=== PATIENT | female | born 2000 | race Caucasian/White ===

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

== ENCOUNTER 2019-03-29 14:50 | Emergency (ER) | payer MEDICAID ==
--- NOTE | 2019-03-29 15:14 | ER Document Report ---
ED Medical Screen (RME) - General Chief Complaint: Urinary Problem Stated Complaint: URINARY ISSUES Time Seen by Provider: 03/29/19 15:10 Mode of Arrival: Ambulatory Information source: Patient Notes: 19-year-old female presents emergency department with left-sided flank pain that started today. Reports she has been treated for UTI due to burning with void in the past 2 weeks with 2 different antibiotics. Reports she took a Z-Wally first it did not help her symptoms. And then she took Cipro. She started taking the Cipro yesterday and does not have any further pain with void but now having flank pain. Denies fever vomiting diarrhea. Has history of endometriosis. I have greeted and performed a rapid initial assessment of this patient. A comprehensive ED assessment and evaluation of the patient, analysis of test results and completion of the medical decision making process will be conducted by additional ED providers. Dictation of this chart was performed using voice recognition software; therefore, there may be some unintended grammatical errors. TRAVEL OUTSIDE OF THE [place] IN LAST 30 DAYS: No - Related Data Allergies/Adverse Reactions: No Known Drug Allergies Allergy (Verified 03/29/19 15:06) Penicillins Allergy (Verified 03/29/19 15:07) throat swelling sulfamethoxazole [From Septra] Allergy (Verified 03/29/19 15:07) throat swelling trimethoprim [From Septra] Allergy (Verified 03/29/19 15:07) throat swelling IVP dye Allergy (Uncoded 03/29/19 15:07) throat swelling Oral contrast Allergy (Uncoded 03/29/19 15:07) throat swelling Home Medications: Cipro started 03/28 Past Medical History - Social History Chew tobacco use (# tins/day): No Frequency of alcohol use: None Drug Abuse: None Family history: None Psychiatric Medical History: Reports: Hx Anxiety Physical Exam - Vital signs Vitals: Pulse Resp BP Pulse Ox 96 20 115/77 97 03/29/19 14:53 03/29/19 14:53 03/29/19 14:53 03/29/19 14:53 Course - Vital Signs Vital signs: Temp Pulse Resp BP Pulse Ox 97.3 F 96 20 115/77 97 03/29/19 15:07 03/29/19 15:07 03/29/19 15:07 03/29/19 15:07 03/29/19 15:07
[2019-03-29 15:54] LABS: ABSOLUTE EOSINOPHILS # (AUTO) 0.1 10^3/uL (0.0-0.6); ABSOLUTE LYMPHOCYTES (AUTO) 2.7 10^3/uL (0.5-4.7); ABSOLUTE MONOCYTES (AUTO) 0.3 10^3/uL (0.1-1.4); ABSOLUTE NEUT (AUTO) 2.5 10^3/uL (1.7-8.2); BASOPHILS % (AUTO) 0.6 % (0-2); EOSINOPHILS % (AUTO) 2.2 % (0-6); HEMATOCRIT 44.7 % (36.0-47.0); HEMOGLOBIN 15.1 g/dL (12.0-15.5); LYMPHOCYTES % (AUTO) 46.9 % (13-45); MEAN CORPUSCULAR HGB CONC 33.7 g/dL (32.0-36.0); MEAN CORPUSCULAR VOLUME 86 fl (80-97); MONOCYTES % (AUTO) 5.8 % (3-13); PLATELET COUNT 264 10^3/uL (150-450); RED CELL DISTRIBUTION WIDTH 12.9 % (11.5-14.0); SEGMENTED NEUTROPHILS % (AUTO) 44.5 % (42-78); TOTAL CELLS COUNTED % (AUTO) 100 %; WHITE BLOOD COUNT 5.7 10^3/uL (4.0-10.5)
[2019-03-29 16:09] LABS: ALKALINE PHOSPHATASE 68 U/L (38-126); ANION GAP 11 (5-19); ASPARTATE AMINO TRANSFERASE 20 U/L (14-36); BILIRUBIN,DIRECT 0.1 mg/dL (0.0-0.4); BILIRUBIN,TOTAL 0.6 mg/dL (0.2-1.3); BLOOD UREA NITROGEN 11 mg/dL (7-20); CALCIUM 9.5 mg/dL (8.4-10.2); CARBON DIOXIDE 26 mmol/L (22-30); CHLORIDE 107 mmol/L (98-107); GLUCOSE 83 mg/dL (75-110); TOTAL PROTEIN 8.2 g/dL (6.3-8.2)
--- NOTE | 2019-03-29 16:50 | RADIOLOGY REPORT (SQ) ---
EXAM DESCRIPTION: [facility] COMPLETED DATE/TIME: 03/29/2019 4:24 pm REASON FOR STUDY: flank pain, hx uti 2 weeks COMPARISON: None. TECHNIQUE: Dynamic and static grayscale images acquired of the kidneys and bladder and recorded on P ACS. Additional selected color Doppler and spectral images recorded. LIMITATIONS: None. FINDINGS: RIGHT KIDNEY: The right kidney measures 9.5 x 3.8 x 3.9 cm, normal size. Normal echogen icity. No solid or suspicious masses. No hydronephrosis. No calcifications. LEFT KIDNEY: Left kidney measures 9.3 x 4.6 x 3.5 cm, normal size. Normal echogenicity. No solid or suspicious masses. No hydronephrosis. No calcifications. BLADDER: The urinary bladder is incompletely distended. Ureteral jets are not visualized. OTHER FINDINGS: No other significant finding. IMPRESSION: 1. No evidence of hydronephrosis. TECHNICAL DOCUMENTATION: JOB ID: [id number] [employer]- All Rights Reserved Reading location - IP/workstation name: [email or web address]
[2019-03-29 18:19] LABS: APPEARANCE,URINE SLIGHTLY-CLOUDY; BILIRUBIN,URINE NEGATIVE (NEGATIVE); COLOR,URINE YELLOW; GLUCOSE, URINE NEGATIVE (NEGATIVE); KETONES,URINE NEGATIVE (NEGATIVE); PROTEIN,URINE NEGATIVE (NEGATIVE); URINE SPECIFIC GRAVITY 1.028; UROBILINOGEN,URINE NEGATIVE mg/dL (<2.0)
--- NOTE | 2019-03-29 19:54 | ER Document Report ---
ED General - General Chief Complaint: Urinary Problem Stated Complaint: URINARY ISSUES Time Seen by Provider: 03/29/19 15:10 Mode of Arrival: Ambulatory Notes: 19-year-old female presents emergency department complaining of a continuing urinary tract infection. Patient states that 2 weeks ago she started having symptoms of a bladder infection that she describes as dysuria and frequency as well as pain in her back. States she was treated with a Z-Wally and it improved her symptoms but did not completely resolve them. States that yesterday her primary care provider prescribed her ciprofloxacin and told her that if she did not feel better by today to go to the emergency department. Patient states that today she developed some cramping in her low abdomen as well as her low back that went all the way up to between her shoulder blades. Denies any fevers, denies any vaginal discharge, denies any new sexual partners. States that her primary care provider has tested her for sexually transmitted diseases and she should be getting those results in the next 2 days. TRAVEL OUTSIDE OF THE [place] IN LAST 30 DAYS: No - Related Data Allergies/Adverse Reactions: No Known Drug Allergies Allergy (Verified 03/29/19 15:06) Penicillins Allergy (Verified 03/29/19 15:07) throat swelling sulfamethoxazole [From Septra] Allergy (Verified 03/29/19 15:07) throat swelling trimethoprim [From Septra] Allergy (Verified 03/29/19 15:07) throat swelling IVP dye Allergy (Uncoded 03/29/19 15:07) throat swelling Oral contrast Allergy (Uncoded 03/29/19 15:07) throat swelling Home Medications: Cipro started 03/28 Past Medical History - General Information source: Patient - Social History Smoking Status: Never Smoker Chew tobacco use (# tins/day): No Frequency of alcohol use: None Drug Abuse: None Family History: Reviewed & Not Pertinent Patient has suicidal ideation: No Patient has homicidal ideation: No Psychiatric Medical History: Reports: Hx Anxiety Review of Systems - Review of Systems Constitutional: No symptoms reported Genitourinary: See HPI Musculoskeletal: See HPI -: Yes All other systems reviewed and negative Physical Exam - Vital signs Vitals: Pulse Resp BP Pulse Ox 96 20 115/77 97 03/29/19 14:53 03/29/19 14:53 03/29/19 14:53 03/29/19 14:53 Interpretation: Normal - Notes Notes: GENERAL: Alert, interacts well. No acute distress. HEAD: Normocephalic, atraumatic EYES: Pupils equal, round and reactive to light, extraocular movements intact. ENT: Oral mucosa moist, tongue midline. NECK: Full range of motion, supple, trachea midline. LUNGS: Clear to auscultation bilaterally, no wheezes, rales or rhonchi, no respiratory distress. HEART: Regular rate and rhythm, no murmurs, gallops, rubs. ABDOMEN: Soft, nontender, nondistended, bowel sounds present in all 4 quadrants. No CVA tenderness to percussion. EXTREMITIES: Moves all 4 extremities spontaneously, no edema, radial and dorsalis pedis pulses 2/4 bilaterally. No cyanosis. NEUROLOGICAL: Alert and oriented x3, normal speech. PSYCH: Normal mood, normal affect. SKIN: Warm, Dry, normal turgor, no rashes or lesions noted. Course - Re-evaluation Re-evalutation: 03/29/19 19:55 CBC unremarkable, CMP unremarkable, urinalysis shows trace leukocyte esterase, this is been sent for clean-catch culture, renal ultrasound does not show any signs of hydronephrosis, no blood in urine means I have very low suspicion for stone. No evidence of pyelonephritis at this time. Recommended the patient give it more than 24 hours for the antibiotic to work. We will call her if the culture grows out something resistant to Cipro. - Vital Signs Vital signs: Temp Pulse Resp BP Pulse Ox 99.1 F 95 16 124/72 100 03/29/19 18:06 03/29/19 18:06 03/29/19 18:06 03/29/19 18:06 03/29/19 18:06 - Laboratory Result Diagrams: 03/29/19 15:39 03/29/19 15:39 Laboratory results interpreted by me: 03/29/19 03/29/19 15:39 15:39 Lymph % (Auto) 46.9 H Leukocyte Esterase Rfl TRACE H Discharge - Discharge Clinical Impression: UTI (urinary tract infection) Qualifiers: Urinary tract infection type: acute cystitis Hematuria presence: without hematuria Qualified Code(s): N30.00 - Acute cystitis without hematuria Low back pain Qualifiers: Chronicity: acute Back pain laterality: bilateral Sciatica presence: without sciatica Qualified Code(s): M54.5 - Low back pain Condition: Stable Disposition: HOME, SELF-CARE Instructions: Urinary Tract Infection ([facility])
[2019-03-29 20:02] VITALS: BP 110/64
== END 2019-03-29 20:02 | disposition home or self-care (01) ==
LOC: ER 14:50
DX: N30.00 Acute cystitis without hematuria (principal); M54.5 Low back pain
CPT/HCPCS: 36415; 76775; 80053; 81001; 81025; 85025; 87086; 99284